=== PATIENT | male | born 1990 | race African-American/Black ===

== ENCOUNTER 2019-01-10 11:47 | Emergency (ER) | payer OTHER ==
[~2019-01-10] VITALS: Ht 170.2 cm; Wt 57.0 kg
[2019-01-10 12:37] LABS: HEMOGLOBIN. 13.3 g/dL (14.0-18.0); MEAN CORPUSCULAR HEMOGLOBIN 27.5 pg (28.0-32.0); MEAN CORPUSCULAR VOLUME 82.4 fL (80.0-94.0); MEAN PLATELET VOLUME 9.5 fl (7.4-10.4); PLATELET 150 x1000/uL (130-400); RED BLOOD CELL COUNT 4.85 mill/uL (4.7-6.1)
[2019-01-10] MEDS ORDERED: SODIUM CHLORIDE 0.9% 1,000 ML IV ONE (12:37)
[2019-01-10 12:45] LABS: CHLORIDE 106 mEq/L (98-107)
[2019-01-10] MEDS ORDERED: DEXAMETHASONE 10 MG/ML VIAL IV ONE (12:45)
[2019-01-10] MEDS ORDERED: CEFTRIAXONE 1 G PREMIX 50 ML IV ONE (12:45)
[2019-01-10 12:46] LABS: INR 1.1; PARTIAL THROMBOPLASTIN TIME 28.5 sec (23.4-31.0); PROTHROMBIN TIME 11.5 sec (9.6-11.0)
[2019-01-10 13:18] LABS: PLATELET ESTIMATE NORMAL
[2019-01-10 15:31] VITALS: BP 120/84
== END 2019-01-10 15:33 | disposition home or self-care (01) ==
LOC: ER 12:56
DX: R55 Syncope and collapse (principal); J02.0 Streptococcal pharyngitis; R03.0 Elevated blood-pressure reading, without diagnosis of hypertension
CPT/HCPCS: 36415; 70450; 71045; 80053; 83880; 84484; 85025; 85610; 85730; 87430; 93005; 96361; 96374; 96375; 99284; J0696; J1100; J7030